=== PATIENT | male | born 1935 | race Caucasian/White ===

== ENCOUNTER 2023-12-26 13:22 | Outpatient (RCR) | payer MEDICARE, SELFPAY | END 2024-03-30 14:04 | disposition home or self-care (01) | LOC: HO.WCC 13:22 | PROVIDERS: PCP Physician Assistant Medical; Referring Provider Physician Assistant Medical; Visit Provider Physician Assistant | DX: L97.212 Non-pressure chronic ulcer of right calf with fat layer exposed; R73.03 Prediabetes; I87.2 Venous insufficiency (chronic) (peripheral); I48.91 Unspecified atrial fibrillation; I73.89 Other specified peripheral vascular diseases; Z79.01 Long term (current) use of anticoagulants; Z79.899 Other long term (current) drug therapy | CPT/HCPCS: 11042; 99212; 99213 ==